=== PATIENT | female | born 1980 | race Caucasian/White ===

== ENCOUNTER 2016-07-03 20:19 | Emergency (ER) | payer OTHER ==
[2016-07-03] MEDS ORDERED: DECADRON IM ONE (21:24)
[2016-07-03] MEDS ORDERED: TORADOL IM ONE (21:24)
[2016-07-03] MEDS ORDERED: NORFLEX IM ONE (21:24)
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
[2016-07-03 21:48] VITALS: BP 131/48
--- NOTE | 2016-07-04 08:21 | Diag Imaging Result Document ---
PROCEDURE NAME: WRIST COMPLETE LEFT - 07/03/2016 LEFT WRIST, THREE VIEWS: FINDINGS: No fracture. No dislocation. IMPRESSION: No acute bony injury.
== END 2016-07-03 21:55 | disposition home or self-care (01) ==
LOC: EDBD → ED 20:19
DX: S63.502A Unspecified sprain of left wrist, initial encounter (principal); M79.1 Myalgia; M25.532 Pain in left wrist; Y04.0XXA Assault by unarmed brawl or fight, initial encounter; Z79.899 Other long term (current) drug therapy
CPT/HCPCS: J1100; J1885; J2360